=== PATIENT | female | born 1980 | race African-American/Black ===

== ENCOUNTER 2019-08-12 05:34 | Inpatient (IN) | payer MEDICAID ==
[~2019-08-12] VITALS: Ht 167.6 cm; Wt 84.4 kg
[2019-08-12] VITALS (8 sets, daily range): BP systolic 120–138; BP diastolic 75–86
--- NOTE | 2019-08-12 05:50 | Emergency Room Report ---
History of Present Illness General Chief Complaint: Abdominal Pain Source: Patient Present Illness HPI This is a 38-year-old female with no past medical history. She presents with complaint abdominal pain. Pain started around 10 PM, 8 hours prior to arrival. She said pain is diffusely. Pain is sharp and spastic in nature. Comes in waves. When it comes on is 10 out of 10. She has couple episode of nausea and vomiting. No fever chills. No diarrhea. Denies any trauma. Denies any other complaint. No hematuria. Never had this problem before. Allergies: Coded Allergies: No Known Allergies (Unverified , 08/12/19) Patient History Past Medical History: see triage record, old chart reviewed Past Surgical History: other Pertinent Family History: none Social History: Denies: smoking Now: No Immunizations: other Reviewed Nursing Documentation: PMH: Agreed; PSxH: Agreed Review of Systems Eye: Denies: eye pain, blurred vision ENT: Denies: ear pain, nose congestion, throat swelling Respiratory: Denies: cough, shortness of breath Cardiovascular: Denies: chest pain, palpitations Gastrointestinal: Reports: abdominal pain, nausea, vomiting; Denies: diarrhea Musculoskeletal: Denies: back pain, joint pain Skin: Denies: rash Neurological: Denies: headache, numbness Endocrine: Denies: increased thirst, increased urine Hematologic/Lymphatic: Denies: easy bruising All Other Systems: negative except mentioned in HPI Physical Exam Vital Signs Date Time Temp Pulse Resp B/P (MAP) Pulse Ox O2 Delivery O2 Flow Rate FiO2 08/12/19 05:43 98.1 81 20 138/86 (103) 100 Room Air Vitals normal Sp02 EP Interpretation: reviewed, normal General Appearance: well appearing, no apparent distress, alert Head: normocephalic, atraumatic Eyes: bilateral eye PERRL, bilateral eye EOMI ENT: hearing grossly normal, normal pharynx Neck: full range of motion, supple, no meningismus Respiratory: chest non-tender, lungs clear, normal breath sounds Cardiovascular #1: regular rate, rhythm, no murmur Gastrointestinal: normal bowel sounds, no mass, no organomegaly, no bruit, non- distended, tenderness - Right upper quadrant tenderness mostly Musculoskeletal: back normal, normal range of motion, gait/station normal Psychiatric: mood/affect normal Medical Decision Making Diagnostic Impression: Primary Impression: Abdominal pain Qualified Codes: R10.11 - Right upper quadrant pain Additional Impression: SBO (small bowel obstruction) ER Course Patient with abdominal pain with vomiting. Differential includes gallstone, gastritis, pancreatitis, obstruction, appendicitis telemetry. Labs and pain medication given. Patient will get CT scan to rule out acute abdomen. I will sign this patient out to Dr. Oliva for final disposition. CT/MRI/US Diagnostic Results CT/MRI/US Diagnostic Results : Imaging Test Ordered: CT abd and pelvis Impression SBO. read by radiologist. Last Vital Signs Date Time Temp Pulse Resp B/P (MAP) Pulse Ox O2 Delivery O2 Flow Rate FiO2 08/12/19 05:43 98.1 81 20 138/86 (103) 100 Room Air Status: improved Disposition: ADMITTED INPATIENT Condition: Serious Noe Kelley MD Aug 12, 2019 05:50
--- NOTE | 2019-08-12 05:50 | NUR ---
ED Nurse Note: Pt came in to ED from home c/o abdominal pain started last night at 2200. Reports vomiting x2, denies nausea/ diarrhea. Pt is crying in pain. Describes pain as sharp and comes in wave form. Afebrile. Not in any distress. Pt placed in campus monitor. Family members at bedside.
--- NOTE | 2019-08-12 05:53 | NUR ---
ED Nurse Note: ERMD at bedside.
--- NOTE | 2019-08-12 05:55 | NUR ---
ED Nurse Note: IV line established. Blood specimen collected and sent to lab.
[2019-08-12] MEDS ORDERED: Morphine Sulfate 4mg/ml Inj (IV USE ONLY) IVP ONE ×2 (06:00→06:15)
[2019-08-12] MEDS ORDERED: Morphine Sulfate 4mg/ml Inj (IV USE ONLY) ONE (06:08)
[2019-08-12 06:15] LABS: ANION GAP 13 mmol/L (5-15); BLOOD UREA NITROGEN 14 mg/dL (7-18); CALCIUM 9.2 MG/DL (8.5-10.1); CARBON DIOXIDE 23 MMOL/L (21-32); CHLORIDE 103 MMOL/L (98-107); CREATININE 0.8 MG/DL (0.55-1.30); POTASSIUM 3.9 MMOL/L (3.5-5.1); SODIUM 139 MMOL/L (136-145)
--- NOTE | 2019-08-12 06:16 | NUR ---
ED Nurse Note: Urine specimen collected and sent to lab.
[2019-08-12 06:18] LABS: EOSINOPHILS % (AUTO) 0.3 % (0.0-3.0); HEMATOCRIT 37.3 % (37.0-47.0); HEMOGLOBIN 12.2 G/DL (12.0-16.0); LYMPHOCYTES % (AUTO) 16.9 % (20.0-45.0); MEAN CORPUSCULAR VOLUME 80 FL (80-99); MONOCYTES % (AUTO) 3.1 % (1.0-10.0); NEUTROPHILS % (AUTO) 78.7 % (45.0-75.0); PLATELET COUNT 196 K/UL (150-450); RED BLOOD COUNT 4.66 M/UL (4.20-5.40); RED CELL DISTRIBUTION WIDTH 13.6 % (11.6-14.8); WHITE BLOOD COUNT 9.8 K/UL (4.8-10.8)
[2019-08-12 06:19] LABS: ALANINE AMINOTRANSFERASE 35 U/L (12-78); ALBUMIN 3.7 G/DL (3.4-5.0); ALBUMIN/GLOBULIN RATIO 0.7 (1.0-2.7); ALKALINE PHOSPHATASE 99 U/L (46-116); ASPARTATE AMINO TRANSFERASE 19 U/L (15-37); BILIRUBIN,TOTAL 0.3 MG/DL (0.2-1.0)
--- NOTE | 2019-08-12 06:19 | NUR ---
ED Nurse Note: Filipe Prakash (): [phone]
[2019-08-12] MEDS ORDERED: Ketorolac 30mg Inj IV ONE (06:30)
[2019-08-12] MEDS ORDERED: HYDROmorphone 1mg/ml Carpuject IVP ONE (06:30)
--- NOTE | 2019-08-12 06:36 | NUR ---
ED Nurse Note: Pt was taken for CT via wc, accompanied by a tech.
[2019-08-12 06:37] LABS: APPEARANCE,URINE CLEAR; BILIRUBIN, URINE NEGATIVE (NEGATIVE); COLOR,URINE PALE YELLOW; GLUCOSE, URINE (UA) NEGATIVE (NEGATIVE); KETONES,URINE NEGATIVE (NEGATIVE); LEUKOCYTE ESTERASE ,URINE NEGATIVE (NEGATIVE); NITRITE,URINE NEGATIVE (NEGATIVE); PH,URINE 8 (4.5-8.0); PROTEIN,URINE NEGATIVE (NEGATIVE); UROBILINOGEN,URINE NORMAL MG/DL (0.0-1.0)
--- NOTE | 2019-08-12 06:56 | NUR ---
ED Nurse Note: Pt came back from Ct. Not in any distress.
--- NOTE | 2019-08-12 06:59 | NUR ---
HAND-OFF: Report given to Valerio ESPITIA. Endorsed plan of care.
--- NOTE | 2019-08-12 07:00 | NUR ---
ED Nurse Note: Patient resting in bed, no s/s of acute distress.
--- NOTE | 2019-08-12 07:35 | Diagnostic Imaging Report ---
INDICATION: Abdominal pain TECHNIQUE: Continuous helical transaxial imaging of the abdomen and pelvis was obtained from the lung bases to the pubic symphysis. No intravenous contrast was administered. Coronal 2-D reformats were also obtained. Automatic Exposure Control was utilized. Total Dose length Product (DLP): 1579.[address] Dose Index Volume (CTDIvol): 28.1 mGy Comparison: none FINDINGS: Lungs: There is minimal left basal atelectasis.. Liver: Unremarkable Gallbladder/biliary system: No gallstones are identified. There is no evidence of intrahepatic or extrahepatic biliary ductal dilatation. Spleen: Unremarkable Pancreas: Unremarkable Kidneys/Bladder: No definite stone or hydronephrosis are identified. The urinary bladder is unremarkable.. Adrenal glands: Unremarkable Bowel: Mild dilated loops of small bowel demonstrated within the upper and mid abdomen. There are normal caliber loops of terminal ileum and distal small bowel suggesting transition and bowel obstruction. The point of obstruction is not readily elucidated on this examination but is probably in the lower abdomen. Current exam is obtained is limited due to the nonadministration of IV and oral contrast. There is no free air or free fluid. Aorta/IVC: Unremarkable Peritoneum: There is no free fluid. Bones: IMPRESSION: Suspicion of small bowel obstruction. Would include ileus in the differential diagnosis. The degree of bowel dilatation is mild. Transition point is not definitely seen. Note: Evaluation of solid organs is limited on non contrast imaging. [facility] has communicated the preliminary results to the Emergency Department. Their findings are largely concordant with this report. The CT scanner at [facility] is accredited by the [employer] and the scans are performed using dose optimization techniques as appropriate to a performed exam including Automatic Exposure control.
--- NOTE | 2019-08-12 08:46 | Emergency Room Report ---
Physical Exam Vital Signs Date Time Temp Pulse Resp B/P (MAP) Pulse Ox O2 Delivery O2 Flow Rate FiO2 08/12/19 05:43 98.1 81 20 138/86 (103) 100 Room Air Medical Decision Making Diagnostic Impression: Primary Impression: SBO (small bowel obstruction) ER Course Patient signed out by Dr. Kelley pending CT abdomen pelvis. Patient presented with 1 day of abdominal pain. Afebrile no elevated white blood cell count. Patient has history of laparoscopic fibroid removal as well as . CT demonstrates low-grade small bowel obstruction. Dr. Denson on-call for Dorie and will be admitting the patient. They requested Dr. Mcrae for surgical consultation. I have called him and left a message on his phone to call us back for consultation. Kept n.p.o. Laboratory Tests Test 08/12/19 05:55 08/12/19 06:15 White Blood Count 9.8 K/UL (4.8-10.8) Red Blood Count 4.66 M/UL (4.20-5.40) Hemoglobin 12.2 G/DL (12.0-16.0) Hematocrit 37.3 % (37.0-47.0) Mean Corpuscular Volume 80 FL (80-99) Mean Corpuscular Hemoglobin 26.2 PG (27.0-31.0) L Mean Corpuscular Hemoglobin Concent 32.7 G/DL (32.0-36.0) Red Cell Distribution Width 13.6 % (11.6-14.8) Platelet Count 196 K/UL (150-450) Mean Platelet Volume 8.7 FL (6.5-10.1) Neutrophils (%) (Auto) 78.7 % (45.0-75.0) H Lymphocytes (%) (Auto) 16.9 % (20.0-45.0) L Monocytes (%) (Auto) 3.1 % (1.0-10.0) Eosinophils (%) (Auto) 0.3 % (0.0-3.0) Basophils (%) (Auto) 1.0 % (0.0-2.0) Sodium Level 139 MMOL/L (136-145) Potassium Level 3.9 MMOL/L (3.5-5.1) Chloride Level 103 MMOL/L (98-107) Carbon Dioxide Level 23 MMOL/L (21-32) Anion Gap 13 mmol/L (5-15) Blood Urea Nitrogen 14 mg/dL (7-18) Creatinine 0.8 MG/DL (0.55-1.30) Estimate Glomerular Filtration Rate > 60 mL/min (>60) Glucose Level 122 MG/DL (74-106) H Calcium Level 9.2 MG/DL (8.5-10.1) Total Bilirubin 0.3 MG/DL (0.2-1.0) Aspartate Amino Transferase (AST) 19 U/L (15-37) Alanine Aminotransferase (ALT) 35 U/L (12-78) Alkaline Phosphatase 99 U/L (46-116) Total Protein 8.7 G/DL (6.4-8.2) H Albumin 3.7 G/DL (3.4-5.0) Globulin 5.0 g/dL Albumin/Globulin Ratio 0.7 (1.0-2.7) L Lipase 106 U/L (73-393) Human Chorionic Gonadotropin, Qual Negative (NEGATIVE) Urine Color Pale yellow Urine Appearance Clear Urine pH 8 (4.5-8.0) Urine Specific [place] 1.010 (1.005-1.035) Urine Protein Negative (NEGATIVE) Urine Glucose (UA) Negative (NEGATIVE) Urine Ketones Negative (NEGATIVE) Urine Blood Negative (NEGATIVE) Urine Nitrite Negative (NEGATIVE) Urine Bilirubin Negative (NEGATIVE) Urine Urobilinogen Normal MG/DL (0.0-1.0) Urine Leukocyte Esterase Negative (NEGATIVE) Urine HCG, Qualitative Negative (NEGATIVE) Last Vital Signs Date Time Temp Pulse Resp B/P (MAP) Pulse Ox O2 Delivery O2 Flow Rate FiO2 08/12/19 06:55 98.0 08/12/19 05:50 81 20 Room Air 08/12/19 05:50 138/86 100 Disposition: ADMITTED INPATIENT Condition: Serious Referrals: NOT CHOSEN NORMA/,REFERRING (PCP) Janet Oliva M.D. Aug 12, 2019 08:46
--- NOTE | 2019-08-12 09:15 | NUR ---
ED Nurse Note: Dr. Denson at bedside.
--- NOTE | 2019-08-12 09:57 | History and Physical ---
History of Present Illness General Date patient seen: Aug 12, 2019 Reason for Hospitalization: Abdominal Pain Present Illness HPI Patient is a 38-year-old female who presented to the ER with 1 day of abdominal pain and vomiting. Denies diarrhea, had a very small bowel movement the night before admission. Patient denies fever chills or any sick contacts. She is accompanied by her 7-year-old son at bedside. Patient says she smoking cigarettes never felt this in the past. She denies any aggravating or relieving factors. Her brother is a surgeon in [place] and he advised her to go to the ER. Past medical history: Hyperthyroidism on medications Past surgical history: C section, laparoscopic fibroid Social history: Denies toxic habits such as smoking cigarettes, drinking alcohol , or illicit drug use Family history: dad with DM meds: Atenolol 25, Methimazole 5 Allergies: Coded Allergies: No Known Allergies (Unverified , 08/12/19) Patient History Healthcare decision maker Resuscitation status Advanced Directive on File Review of Systems Constitutional: Denies: no symptoms, see HPI, chills, sweats, fever, malaise, weakness, other Eye: Denies: no symptoms, see HPI, eye pain, blurred vision, tearing, double vision, nose pain, nose congestion, acuity changes, discharge, other ENT: Denies: no symptoms, see HPI, ear pain, ear discharge, nose pain, nose congestion, throat pain, throat swelling, mouth pain, hearing loss, nasal discharge, other Respiratory: Denies: no symptoms, see HPI, cough, orthopnea, shortness of breath, stridor, wheezing, EUBANKS, sputum, other Cardiovascular: Denies: no symptoms, see HPI, chest pain, edema, palpitations, syncope, PND, other Gastrointestinal: Reports: abdominal pain, constipation, vomiting Genitourinary: Denies: no symptoms, see HPI, discharge, dysuria, frequency, hematuria, pain, retention, incontinence, urgency, vag bleed/dc, other Musculoskeletal: Denies: no symptoms, see HPI, back pain, gout, joint pain, joint swelling, muscle pain, muscle stiffness, other Skin: Denies: no symptoms, see HPI, rash, change in color, change in hair/nails , dryness, lesions, other Psychiatric: Denies: no symptoms, see HPI, prior hx, anxiety, depressed feelings, emotional problems, SI, HI, hallucinations, other Neurological: Denies: no symptoms, see HPI, headache, numbness, paresthesia, seizure, tingling, tremors, focal weakness, syncope, dizziness, other Endocrine: Denies: no symptoms, see HPI, excessive sweating, flushing, intolerance to temperature, increased thirst, increased urine, unexplained weight loss, other Hematologic/Lymphatic: Denies: no symptoms, see HPI, anemia, blood clots, easy bleeding, easy bruising, swollen glands, diathesis, other Physical Exam General Appearance: mild distress Lines, tubes and drains: peripheral HEENT: normocephalic, atraumatic, anicteric, PERRL, EOMI Neck: non-tender, supple Respiratory/Chest: chest wall non-tender, lungs clear, normal breath sounds, no respiratory distress Cardiovascular/Chest: normal peripheral pulses, normal rate, regular rhythm, no gallop/murmur, no JVD Abdomen: normal bowel sounds, soft, no organomegaly, no mass, tender - RUQ Extremities: normal range of motion, non-tender, normal inspection, no calf tenderness, normal capillary refill Skin Exam: normal pigmentation, warm/dry Neurologic: warehouse packer II-XII grossly normal, no motor/sensory deficits, abnormal gait , alert, oriented x 3, responsive Musculoskeletal: normal muscle bulk Last 24 Hour Vital Signs Date Time Temp Pulse Resp B/P (MAP) Pulse Ox O2 Delivery O2 Flow Rate FiO2 08/12/19 06:55 98.0 08/12/19 06:55 98.0 08/12/19 06:50 98.0 08/12/19 06:21 98.0 08/12/19 05:50 81 20 Room Air 08/12/19 05:50 98.1 81 20 138/86 100 Room Air 08/12/19 05:43 98.1 81 20 138/86 (103) 100 Room Air Intake and Output 08/11/19 08/12/19 19:00 07:00 Intake Total 1000 ml Balance 1000 ml Intake IV Total 1000 ml Laboratory Tests Test 08/12/19 05:55 08/12/19 06:15 White Blood Count 9.8 K/UL (4.8-10.8) Red Blood Count 4.66 M/UL (4.20-5.40) Hemoglobin 12.2 G/DL (12.0-16.0) Hematocrit 37.3 % (37.0-47.0) Mean Corpuscular Volume 80 FL (80-99) Mean Corpuscular Hemoglobin 26.2 PG (27.0-31.0) L Mean Corpuscular Hemoglobin Concent 32.7 G/DL (32.0-36.0) Red Cell Distribution Width 13.6 % (11.6-14.8) Platelet Count 196 K/UL (150-450) Mean Platelet Volume 8.7 FL (6.5-10.1) Neutrophils (%) (Auto) 78.7 % (45.0-75.0) H Lymphocytes (%) (Auto) 16.9 % (20.0-45.0) L Monocytes (%) (Auto) 3.1 % (1.0-10.0) Eosinophils (%) (Auto) 0.3 % (0.0-3.0) Basophils (%) (Auto) 1.0 % (0.0-2.0) Sodium Level 139 MMOL/L (136-145) Potassium Level 3.9 MMOL/L (3.5-5.1) Chloride Level 103 MMOL/L (98-107) Carbon Dioxide Level 23 MMOL/L (21-32) Anion Gap 13 mmol/L (5-15) Blood Urea Nitrogen 14 mg/dL (7-18) Creatinine 0.8 MG/DL (0.55-1.30) Estimat Glomerular Filtration Rate > 60 mL/min (>60) Glucose Level 122 MG/DL (74-106) H Calcium Level 9.2 MG/DL (8.5-10.1) Total Bilirubin 0.3 MG/DL (0.2-1.0) Aspartate Amino Transf (AST/SGOT) 19 U/L (15-37) Alanine Aminotransferase (ALT/SGPT) 35 U/L (12-78) Alkaline Phosphatase 99 U/L (46-116) Total Protein 8.7 G/DL (6.4-8.2) H Albumin 3.7 G/DL (3.4-5.0) Globulin 5.0 g/dL Albumin/Globulin Ratio 0.7 (1.0-2.7) L Lipase 106 U/L (73-393) Human Chorionic Gonadotropin, Qual Negative (NEGATIVE) Urine Color Pale yellow Urine Appearance Clear Urine pH 8 (4.5-8.0) Urine Specific [place] 1.010 (1.005-1.035) Urine Protein Negative (NEGATIVE) Urine Glucose (UA) Negative (NEGATIVE) Urine Ketones Negative (NEGATIVE) Urine Blood Negative (NEGATIVE) Urine Nitrite Negative (NEGATIVE) Urine Bilirubin Negative (NEGATIVE) Urine Urobilinogen Normal MG/DL (0.0-1.0) Urine Leukocyte Esterase Negative (NEGATIVE) Urine HCG, Qualitative Negative (NEGATIVE) Height (Feet): 5 Height (Inches): 6.00 Weight (Pounds): 185 Medications Current Medications Medications (Trade) Dose Ordered Sig/Donte Route PRN Reason Start Time Stop Time Status Last Admin Dose Admin Sodium Chloride 1,000 ml @ 999 mls/hr Q1H1M ONCE IV 08/12/19 09:00 08/12/19 10:00 08/12/19 09:[address] abdomen pelvis: Suspicion of small bowel obstruction. Would include ileus in the differential diagnosis. The degree of bowel dilatation is mild. Transition point is not definitely seen. Assessment/Plan Problem List: (1) SBO (small bowel obstruction) ICD Codes: K56.609 - Unspecified intestinal obstruction, unspecified as to partial versus complete obstruction SNOMED: 676676205 (2) Hyperthyroidism ICD Codes: E05.90 - Thyrotoxicosis, unspecified without thyrotoxic crisis or storm SNOMED: 60066785 (3) Obesity (BMI 30.0-34.9) ICD Codes: E66.9 - Obesity, unspecified SNOMED: [id number] Status: stable Assessment/Plan: 38-year-old female with hypothyroidism and previous abdominal surgeries presented with nausea vomiting and abdominal pain. CT abdomen pelvis consistent with small bowel obstruction. #SBO NPO IVF ?NGT Gen surg consult Dr. Mcrae #Hyperthyroidism continue home atneolol and methimazole check TFTs #Obesity Counseled on lifestyle modification and weight loss #VTE prophylaxis: Lovenox 40 mg subcu daily #GI prophylaxis: Not indicated CODE STATUS: Full code I spent 72 minutes on this encounter. Greater than 50% spent in counseling and care coordination. Plan of care discussed with ED physician and patient. Time of note may not reflect time of encounter. Alex Denson M.D. Aug 12, 2019 09:57
[2019-08-12] MEDS ORDERED: Albuterol/Ipratropium 3ml neb HHN PRN (10:00)
[2019-08-12] MEDS: HYDROmorphone 1mg/ml Carpuject IVP PRN ×3 (10:16→22:40)
--- NOTE | 2019-08-12 13:29 | NUR ---
ED Nurse Note: Report given to Alissa ESPITIA
--- NOTE | 2019-08-12 13:40 | NUR ---
nurse notes received patient from ED via gurney , patient awake, alert, oriented x4, no sign of distress, ambulatory skin intact, , admission routine care rendered, oriented to the unit, kept clean dry and comfortable . yeimi sánchez
[2019-08-12] MEDS: Enoxaparin 40mg Inj SUBQ SCH (14:37)
--- NOTE | 2019-08-12 16:36 | Consultation ---
History of Present Illness General Date patient seen: Aug 12, 2019 Reason for Hospitalization: Abdominal Pain Present Illness HPI This is a 38-year-old female with no past medical history who presents to [facility] with complaint of generalized cramping abdominal pain. Pain started around 10 PM day of admission, 8 hours prior to arrival. She said pain is diffusely. Pain is sharp and spastic in nature. Comes in waves. When it comes on is 10 out of 10. She has couple episode of nausea and vomiting no bloody. No fever chills. No diarrhea. Denies any trauma. Denies any other complaint. No hematuria. Never had this problem before. hx of c section and prior lap fibroid surgery. CT with possible sbo. surgery called to evaluate Allergies: Coded Allergies: No Known Allergies (Unverified , 08/12/19) Patient History History Provided By: Patient Healthcare decision maker Resuscitation status Advanced Directive on File Past Medical/Surgical History Past Medical/Surgical History: (1) Abdominal pain (2) SBO (small bowel obstruction) Review of Systems Review of Symptoms General ROS: no weight loss or fever Psychological ROS: no depression or mood changes, no memory loss Ophthalmic ROS: no visual changes or eye irritation ENT ROS: no nasal congestion, hearing loss, dizziness Allergy and Immunology ROS: no allergic symptoms or urticaria Hematological and Lymphatic ROS: no swollen glands, unusual bleeding or bruising Endocrine ROS: no polyuria, polydipsia, weight changes, temperature intolerance Respiratory ROS: no cough, shortness of breath, or wheezing Cardiovascular ROS: no chest pain or dyspnea on exertion Gastrointestinal ROS: abdominal pain, bright red blood in stool. Musculoskeletal ROS: no myalgias or arthralgias Neurological ROS: no TIA or stroke symptoms Dermatological ROS: no new or changing skin lesions, rashes or pruritis Physical Exam Physical Exam General appearance: alert, cooperative, no distress, appears stated age Head: Normocephalic, without obvious abnormality, atraumatic Eyes: conjunctivae/corneas clear. PERRL, EOM's intact. Fundi benign Throat: Lips, mucosa, and tongue normal. Teeth and gums normal Neck: supple, symmetrical, trachea midline, no adenopathy, thyroid: not enlarged, symmetric, no tenderness/mass/nodules, no carotid bruit and no JVD Lungs: clear to auscultation bilaterally Heart: regular rate and rhythm, S1, S2 normal, no murmur, click, rub or gallop Abdomen: soft, non-tender. Bowel sounds normal. No masses, no organomegaly Extremities: extremities normal, atraumatic, no cyanosis or edema Pulses: 2+ and symmetric Skin: Skin color, texture, turgor normal. No rashes or lesions Neurologic: Grossly normal Last 24 Hour Vital Signs Date Time Temp Pulse Resp B/P (MAP) Pulse Ox O2 Delivery O2 Flow Rate FiO2 08/12/19 16:20 98.3 77 19 124/83 (97) 100 08/12/19 14:00 97.3 71 17 120/75 (90) 100 08/12/19 14:00 Room Air 08/12/19 13:07 98.1 81 17 127/79 100 Room Air 08/12/19 12:05 98.1 84 20 130/81 100 Room Air 08/12/19 10:46 98.0 08/12/19 09:15 98.1 79 19 129/79 100 Room Air 08/12/19 07:10 98.1 80 20 138/86 100 Room Air 08/12/19 06:55 98.0 08/12/19 06:55 98.0 08/12/19 06:50 98.0 08/12/19 06:21 98.0 08/12/19 05:50 81 20 Room Air 08/12/19 05:50 98.1 81 20 138/86 100 Room Air 08/12/19 05:43 98.1 81 20 138/86 (103) 100 Room Air Intake and Output 08/11/19 08/12/19 19:00 07:00 Intake Total 1000 ml Balance 1000 ml Intake IV Total 1000 ml Laboratory Tests Test 08/12/19 05:55 08/12/19 06:15 White Blood Count 9.8 K/UL (4.8-10.8) Red Blood Count 4.66 M/UL (4.20-5.40) Hemoglobin 12.2 G/DL (12.0-16.0) Hematocrit 37.3 % (37.0-47.0) Mean Corpuscular Volume 80 FL (80-99) Mean Corpuscular Hemoglobin 26.2 PG (27.0-31.0) L Mean Corpuscular Hemoglobin Concent 32.7 G/DL (32.0-36.0) Red Cell Distribution Width 13.6 % (11.6-14.8) Platelet Count 196 K/UL (150-450) Mean Platelet Volume 8.7 FL (6.5-10.1) Neutrophils (%) (Auto) 78.7 % (45.0-75.0) H Lymphocytes (%) (Auto) 16.9 % (20.0-45.0) L Monocytes (%) (Auto) 3.1 % (1.0-10.0) Eosinophils (%) (Auto) 0.3 % (0.0-3.0) Basophils (%) (Auto) 1.0 % (0.0-2.0) Sodium Level 139 MMOL/L (136-145) Potassium Level 3.9 MMOL/L (3.5-5.1) Chloride Level 103 MMOL/L (98-107) Carbon Dioxide Level 23 MMOL/L (21-32) Anion Gap 13 mmol/L (5-15) Blood Urea Nitrogen 14 mg/dL (7-18) Creatinine 0.8 MG/DL (0.55-1.30) Estimat Glomerular Filtration Rate > 60 mL/min (>60) Glucose Level 122 MG/DL (74-106) H Calcium Level 9.2 MG/DL (8.5-10.1) Total Bilirubin 0.3 MG/DL (0.2-1.0) Aspartate Amino Transf (AST/SGOT) 19 U/L (15-37) Alanine Aminotransferase (ALT/SGPT) 35 U/L (12-78) Alkaline Phosphatase 99 U/L (46-116) Total Protein 8.7 G/DL (6.4-8.2) H Albumin 3.7 G/DL (3.4-5.0) Globulin 5.0 g/dL Albumin/Globulin Ratio 0.7 (1.0-2.7) L Lipase 106 U/L (73-393) Human Chorionic Gonadotropin, Qual Negative (NEGATIVE) Urine Color Pale yellow Urine Appearance Clear Urine pH 8 (4.5-8.0) Urine Specific Breaks 1.010 (1.005-1.035) Urine Protein Negative (NEGATIVE) Urine Glucose (UA) Negative (NEGATIVE) Urine Ketones Negative (NEGATIVE) Urine Blood Negative (NEGATIVE) Urine Nitrite Negative (NEGATIVE) Urine Bilirubin Negative (NEGATIVE) Urine Urobilinogen Normal MG/DL (0.0-1.0) Urine Leukocyte Esterase Negative (NEGATIVE) Urine HCG, Qualitative Negative (NEGATIVE) Height (Feet): 5 Height (Inches): 6.00 Weight (Pounds): 186 Medications Current Medications Medications (Trade) Dose Ordered Sig/Donte Route PRN Reason Start Time Stop Time Status Last Admin Dose Admin Acetaminophen (Tylenol) 650 mg Q4H PRN ORAL Mild Pain (Pain Scale 1-3) 08/12/19 10:00 09/11/19 09:59 Acetaminophen (Tylenol) 650 mg Q4H PRN ORAL fever 08/12/19 10:00 09/11/19 09:59 Albuterol/ Ipratropium (Albuterol/ Ipratropium) 3 ml Q4H PRN HHN Shortness of Breath 08/12/19 10:00 08/17/19 09:59 Atenolol (Tenormin) 25 mg DAILY ORAL 08/13/19 09:00 09/12/19 08:59 Dextrose (Dextrose 50%) 25 ml Q30M PRN IV Hypoglycemia 08/12/19 10:00 09/11/19 09:59 Dextrose (Dextrose 50%) 50 ml Q30M PRN IV Hypoglycemia 08/12/19 10:00 09/11/19 09:59 Enoxaparin Sodium (Lovenox) 40 mg Q24H SUBQ 08/12/19 15:00 09/11/19 14:59 08/12/19 14:37 Hydromorphone HCl (Dilaudid) 1 mg Q4H PRN IVP Moderate Pain (Pain Scale 4-6) 08/12/19 10:00 08/19/19 09:59 08/12/19 10:16 Hydromorphone HCl (Dilaudid) 2 mg Q4H PRN IVP Severe Pain (Pain Scale 7-10) 08/12/19 10:00 08/19/19 09:59 Methimazole (Tapazole) 5 mg THREE TIMES A DAY ORAL 08/12/19 13:00 09/11/19 12:59 08/12/19 14:30 Ondansetron HCl (Zofran) 4 mg Q6H PRN IVP Nausea & Vomiting 08/12/19 10:00 09/11/19 09:59 Sodium Chloride 1,000 ml @ 125 mls/hr Q8H IVLG 08/12/19 11:00 09/11/19 10:59 08/12/19 14:35 Assessment/Plan Problem List: (1) Abdominal pain Assessment & Plan: 38F with abd pain, n/v, Ct with possible sbo. labs okay exam now benign improving had flatus Upper GI small bowel series tomorrow if okay start diet and d/c planning npo for now iv fluids will follow with recs thank you ICD Codes: R10.9 - Unspecified abdominal pain SNOMED: 49098477 Qualifiers: Qualified Codes: R10.11 - Right upper quadrant pain (2) SBO (small bowel obstruction) Assessment & Plan: Lungs: There is minimal left basal atelectasis.. Liver: Unremarkable Gallbladder/biliary system: No gallstones are identified. There is no evidence of intrahepatic or extrahepatic biliary ductal dilatation. Spleen: Unremarkable Pancreas: Unremarkable Kidneys/Bladder: No definite stone or hydronephrosis are identified. The urinary bladder is unremarkable.. Adrenal glands: Unremarkable Bowel: Mild dilated loops of small bowel demonstrated within the upper and mid abdomen. There are normal caliber loops of terminal ileum and distal small bowel suggesting transition and bowel obstruction. The point of obstruction is not readily elucidated on this examination but is probably in the lower abdomen. Current exam is obtained is limited due to the nonadministration of IV and oral contrast. There is no free air or free fluid. Aorta/IVC: Unremarkable Peritoneum: There is no free fluid. Bones: IMPRESSION: Suspicion of small bowel obstruction. Would include ileus in the differential diagnosis. The degree of bowel dilatation is mild. Transition point is not definitely seen. Note: Evaluation of solid organs is limited on non contrast imaging. ICD Codes: K56.609 - Unspecified intestinal obstruction, unspecified as to partial versus complete obstruction SNOMED: 105874919 Jose Mcrae Aug 12, 2019 16:36
--- NOTE | 2019-08-12 19:32 | NUR ---
NURSE NOTES: Received patient asleep in bed, easily arousable, no c/o pain at this time, no s/s of acute distress. Bed low and locked, patient wearing non slip socks. IV access patent running IVF maintenance at 125 ml/hr. 2 siderails up.
--- NOTE | 2019-08-12 19:33 | NUR ---
HAND-OFF: Report given to NUPUR Hernandez RN
[2019-08-13] VITALS: BP 118/71
[2019-08-13] MEDS: HYDROmorphone 1mg/ml Carpuject IVP PRN ×2 (02:44→10:55)
[2019-08-13 04:00] VITALS: BP 123/65
[2019-08-13 04:36] LABS: BASOPHILS % (AUTO) 0.6 % (0.0-2.0); HEMATOCRIT 32.6 % (37.0-47.0); HEMOGLOBIN 10.7 G/DL (12.0-16.0); LYMPHOCYTES % (AUTO) 40.2 % (20.0-45.0); MEAN CORPUSCULAR VOLUME 80 FL (80-99); MONOCYTES % (AUTO) 6.4 % (1.0-10.0); NEUTROPHILS % (AUTO) 51.7 % (45.0-75.0); PLATELET COUNT 169 K/UL (150-450); RED BLOOD COUNT 4.08 M/UL (4.20-5.40); WHITE BLOOD COUNT 6.9 K/UL (4.8-10.8)
[2019-08-13 04:47] LABS: ANION GAP 5 mmol/L (5-15); BLOOD UREA NITROGEN 7 mg/dL (7-18); CARBON DIOXIDE 27 MMOL/L (21-32); CHLORIDE 107 MMOL/L (98-107); CREATININE 0.6 MG/DL (0.55-1.30); POTASSIUM 3.3 MMOL/L (3.5-5.1); SODIUM 139 MMOL/L (136-145)
[2019-08-13 04:59] LABS: ALANINE AMINOTRANSFERASE 29 U/L (12-78); ALBUMIN 2.7 G/DL (3.4-5.0); ALBUMIN/GLOBULIN RATIO 0.7 (1.0-2.7); ALKALINE PHOSPHATASE 82 U/L (46-116); ASPARTATE AMINO TRANSFERASE 15 U/L (15-37); BILIRUBIN,TOTAL 0.5 MG/DL (0.2-1.0)
--- NOTE | 2019-08-13 07:15 | NUR ---
NURSE NOTES: Received patient in bed, patient awake, alert, oriented x4, denies pain at this time, sign of respiratory distress.IVF patent and infusing well, on fall precaution, Bed low and locked, call light w/n reach, will continue to monitor yeimi sánchez
[2019-08-13 08:10] VITALS: BP 124/80
[2019-08-13] MEDS ORDERED: Atenolol 25mg tab ORAL SCH (09:00)
[2019-08-13 12:00] VITALS: BP 114/71
--- NOTE | 2019-08-13 13:12 | General Progress Note ---
Assessment/Plan Problem List: (1) SBO (small bowel obstruction) ICD Codes: K56.609 - Unspecified intestinal obstruction, unspecified as to partial versus complete obstruction SNOMED: 757113500 (2) Hyperthyroidism ICD Codes: E05.90 - Thyrotoxicosis, unspecified without thyrotoxic crisis or storm SNOMED: 14918348 (3) Obesity (BMI 30.0-34.9) ICD Codes: E66.9 - Obesity, unspecified SNOMED: 020325030917938 Status: stable Assessment/Plan: 38-year-old female with hypothyroidism and previous abdominal surgeries presented with nausea vomiting and abdominal pain. CT abdomen pelvis consistent with small bowel obstruction. #SBO NPO IVF ?NGT s/p upper GI small bowel series. follow up results Gen surg consult Dr. Mcrae, wing appreciated #Hyperthyroidism continue home atneolol and methimazole check TFTs #Obesity Counseled on lifestyle modification and weight loss #VTE prophylaxis: Lovenox 40 mg subcu daily #GI prophylaxis: Not indicated CODE STATUS: Full code I spent 42 minutes on this encounter. Greater than 50% spent in counseling and care coordination. Plan of care discussed with ED physician and patient. Time of note may not reflect time of encounter. Subjective Date patient seen: Aug 13, 2019 Constitutional: Denies: no symptoms, chills, diaphoresis, fever, malaise, weakness, other HEENT: Denies: no symptoms, eye pain, blurred vision, tearing, double vision, ear pain, ear discharge, nose pain, nose congestion, throat pain, throat swelling, mouth pain, mouth swelling, other Cardiovascular: Denies: no symptoms, chest pain, edema, irregular heart rate, lightheadedness, palpitations, syncope, other Respiratory: Denies: no symptoms, cough, orthopnea, shortness of breath, SOB with excertion, SOB at rest, sputum, stridor, wheezing, other Gastrointestinal/Abdominal: Reports: abdominal pain, constipated, nausea Genitourinary: Denies: no symptoms, burning, discharge, frequency, flank pain, hematuria, incontinence, pain, urgency, other Neurologic/Psychiatric: Denies: no symptoms, anxiety, depressed, emotional problems, headache, numbness, paresthesia, pre-existing deficit, seizure, tingling, tremors, weakness, other Endocrine: Denies: no symptoms, excessive sweating, flushing, intolerance to cold, intolerance to heat, increased hunger, increased thirst, increased urine, unexplained weight gain, unexplained weight loss, other Hematologic/Lymphatic: Denies: no symptoms, anemia, easy bleeding, easy bruising, other Allergies: Coded Allergies: No Known Allergies (Unverified , 08/12/19) Subjective has RUQ abdominal pain. went for small bowel series. at bedside Objective Last 24 Hour Vital Signs Date Time Temp Pulse Resp B/P (MAP) Pulse Ox O2 Delivery O2 Flow Rate FiO2 08/13/19 12:00 97.8 66 21 114/71 (85) 96 08/13/19 08:45 Room Air 08/13/19 08:24 68 123/65 08/13/19 08:10 98.6 75 20 124/80 (95) 99 08/13/19 04:00 97.1 68 17 123/65 (84) 99 08/13/19 03:14 97.3 08/13/19 00:00 97.3 70 18 118/71 (87) 100 08/12/19 23:56 Room Air 08/12/19 20:00 97.7 72 20 121/76 (91) 100 08/12/19 16:20 98.3 77 19 124/83 (97) 100 08/12/19 14:00 97.3 71 17 120/75 (90) 100 08/12/19 14:00 Room Air Intake and Output 08/12/19 08/13/19 19:00 07:00 Intake Total 525 ml 1125 ml Balance 525 ml 1125 ml Intake Oral 25 ml IV Total 500 ml 1125 ml # Voids 1 2 Laboratory Tests 08/13/19 04:10: White Blood Count 6.9, Red Blood Count 4.08L, Hemoglobin 10.7L, Hematocrit 32.6L , Mean Corpuscular Volume 80, Mean Corpuscular Hemoglobin 26.1L, Mean Corpuscular Hemoglobin Concent 32.7, Red Cell Distribution Width 14.0, Platelet Count 169, Mean Platelet Volume 8.8, Neutrophils (%) (Auto) 51.7, Lymphocytes (% ) (Auto) 40.2, Monocytes (%) (Auto) 6.4, Eosinophils (%) (Auto) 1.0, Basophils ( %) (Auto) 0.6, Sodium Level 139, Potassium Level 3.3L, Chloride Level 107, Carbon Dioxide Level 27, Anion Gap 5, Blood Urea Nitrogen 7, Creatinine 0.6, Estimat Glomerular Filtration Rate > 60, Glucose Level 90, Calcium Level 8.0L, Total Bilirubin 0.5, Aspartate Amino Transf (AST/SGOT) 15, Alanine Aminotransferase (ALT/SGPT) 29, Alkaline Phosphatase 82, Total Protein 6.8, Albumin 2.7L, Globulin 4.1, Albumin/Globulin Ratio 0.7L, Thyroid Stimulating Hormone (TSH) < 0.010L, Free Thyroxine 1.00 Height (Feet): 5 Height (Inches): 6.00 Weight (Pounds): 186 Objective General Appearance: mild distress Lines, tubes and drains: peripheral HEENT: normocephalic, atraumatic, anicteric, PERRL, EOMI Neck: non-tender, supple Respiratory/Chest: chest wall non-tender, lungs clear, normal breath sounds, no respiratory distress Cardiovascular/Chest: normal peripheral pulses, normal rate, regular rhythm, no gallop/murmur, no JVD Abdomen: normal bowel sounds, soft, no organomegaly, no mass, tender - RUQ Extremities: normal range of motion, non-tender, normal inspection, no calf tenderness, normal capillary refill Skin Exam: normal pigmentation, warm/dry 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 Aug 13, 2019 13:12
--- NOTE | 2019-08-13 14:13 | Surgery Progress Note ---
Surgery Progress Note Subjective Symptoms: improved, pain absent, passing flatus, BM Objective Last 24 Hour Vital Signs Date Time Temp Pulse Resp B/P (MAP) Pulse Ox O2 Delivery O2 Flow Rate FiO2 08/13/19 12:00 97.8 66 21 114/71 (85) 96 08/13/19 08:45 Room Air 08/13/19 08:24 68 123/65 08/13/19 08:10 98.6 75 20 124/80 (95) 99 08/13/19 04:00 97.1 68 17 123/65 (84) 99 08/13/19 03:14 97.3 08/13/19 00:00 97.3 70 18 118/71 (87) 100 08/12/19 23:56 Room Air 08/12/19 20:00 97.7 72 20 121/76 (91) 100 08/12/19 16:20 98.3 77 19 124/83 (97) 100 I&O Intake and Output 08/12/19 08/13/19 19:00 07:00 Intake Total 525 ml 1125 ml Balance 525 ml 1125 ml Intake Oral 25 ml IV Total 500 ml 1125 ml # Voids 1 2 Cardiovascular: RSR Respiratory: clear Abdomen: soft, flat, non-tender, present bowel sounds, non-distended Extremities: no edema, no tenderness, no cyanosis Laboratory Tests Test 08/13/19 04:10 White Blood Count 6.9 K/UL (4.8-10.8) Red Blood Count 4.08 M/UL (4.20-5.40) L Hemoglobin 10.7 G/DL (12.0-16.0) L Hematocrit 32.6 % (37.0-47.0) L Mean Corpuscular Volume 80 FL (80-99) Mean Corpuscular Hemoglobin 26.1 PG (27.0-31.0) L Mean Corpuscular Hemoglobin Concent 32.7 G/DL (32.0-36.0) Red Cell Distribution Width 14.0 % (11.6-14.8) Platelet Count 169 K/UL (150-450) Mean Platelet Volume 8.8 FL (6.5-10.1) Neutrophils (%) (Auto) 51.7 % (45.0-75.0) Lymphocytes (%) (Auto) 40.2 % (20.0-45.0) Monocytes (%) (Auto) 6.4 % (1.0-10.0) Eosinophils (%) (Auto) 1.0 % (0.0-3.0) Basophils (%) (Auto) 0.6 % (0.0-2.0) Sodium Level 139 MMOL/L (136-145) Potassium Level 3.3 MMOL/L (3.5-5.1) L Chloride Level 107 MMOL/L (98-107) Carbon Dioxide Level 27 MMOL/L (21-32) Anion Gap 5 mmol/L (5-15) Blood Urea Nitrogen 7 mg/dL (7-18) Creatinine 0.6 MG/DL (0.55-1.30) Estimat Glomerular Filtration Rate > 60 mL/min (>60) Glucose Level 90 MG/DL (74-106) Calcium Level 8.0 MG/DL (8.5-10.1) L Total Bilirubin 0.5 MG/DL (0.2-1.0) Aspartate Amino Transf (AST/SGOT) 15 U/L (15-37) Alanine Aminotransferase (ALT/SGPT) 29 U/L (12-78) Alkaline Phosphatase 82 U/L (46-116) Total Protein 6.8 G/DL (6.4-8.2) Albumin 2.7 G/DL (3.4-5.0) L Globulin 4.1 g/dL Albumin/Globulin Ratio 0.7 (1.0-2.7) L Thyroid Stimulating Hormone (TSH) < 0.010 uiU/mL (0.358-3.740) Free Thyroxine 1.00 NG/DL (0.76-1.46) Plan Problems: (1) Abdominal pain Assessment & Plan: 38F with abd pain, n/v, Ct with possible sbo. labs okay exam now benign improving had flatus Upper GI small bowel series normal okay start diet d/c planning will follow with recs thank you (2) SBO (small bowel obstruction) Assessment & Plan: Lungs: There is minimal left basal atelectasis.. Liver: Unremarkable Gallbladder/biliary system: No gallstones are identified. There is no evidence of intrahepatic or extrahepatic biliary ductal dilatation. Spleen: Unremarkable Pancreas: Unremarkable Kidneys/Bladder: No definite stone or hydronephrosis are identified. The urinary bladder is unremarkable.. Adrenal glands: Unremarkable Bowel: Mild dilated loops of small bowel demonstrated within the upper and mid abdomen. There are normal caliber loops of terminal ileum and distal small bowel suggesting transition and bowel obstruction. The point of obstruction is not readily elucidated on this examination but is probably in the lower abdomen. Current exam is obtained is limited due to the nonadministration of IV and oral contrast. There is no free air or free fluid. Aorta/IVC: Unremarkable Peritoneum: There is no free fluid. Bones: IMPRESSION: Suspicion of small bowel obstruction. Would include ileus in the differential diagnosis. The degree of bowel dilatation is mild. Transition point is not definitely seen. Note: Evaluation of solid organs is limited on non contrast imaging. Jose Mcrae Aug 13, 2019 14:13
[2019-08-13] MEDS: Enoxaparin 40mg Inj SUBQ SCH (14:32)
--- NOTE | 2019-08-13 14:51 | NUR ---
CASE MANAGEMENT:INITIAL REVIEW 38 YR OLD FEMALE FROM HOME CC;ABDOMINAL PAIN SI;SMALL BOWEL OBSTRUCTION 98.1 81 20 138/86 100% ON RA ABD/PELVIS CT - Suspicion of small bowel obstruction. Would include ileus in the differential diagnosis. The degree of bowel dilatation is mild. IS;ZOFRAN IV X1 MORPHINE IV X1 DILAUDID IV X1 IVF NS BOLUS X1 TORADOL IV X1 ADMITTED TO MED SURG MED SURG STATUS DCP;FROM HOME
[2019-08-13 15:56] VITALS: BP 105/66
--- NOTE | 2019-08-13 19:08 | NUR ---
HAND-OFF: Report given to Ms Jocelin RN, resting comfortably in bed, needs met and anticipated yeimi sánchez.
--- NOTE | 2019-08-13 19:52 | NUR ---
NURSE NOTES: Received patient asleep in bed, easily arousable, no c/o pain at this time, no s/s of acute distress. Bed low and locked, patient wearing non slip socks. IV access patent, on saline lock, dressing dry and intact. 2 siderails up.
[2019-08-13 20:00] VITALS: BP 137/80
--- NOTE | 2019-08-13 21:44 | NUR ---
NURSE NOTES: Patient wants to leave AMA, left message for Dr Le, awaiting call back.
--- NOTE | 2019-08-13 21:59 | NUR ---
AMA: SEE AMA FORM. Dr Le aware. IV access discontinued, no s/s of infection, IV catheter intact. Patient left with in private vehicle.
--- NOTE | 2019-08-14 09:40 | Diagnostic Imaging Report ---
Indication: Abdominal pain, suspected small bowel obstruction on prior CT scan Technique: Patient ingested water-soluble contrast. Serial overhead films obtained. A total of 6 images were obtained. No fluoroscopy utilized. Comparison: CT scan dated 08/12/2019 Findings: [employer] Outreach Specialist image demonstrates normal bowel gas pattern. No masses or unusual calcifications. Previously demonstrated small bowel gaseous distention is not evident After contrast ingestion, the stomach appears normal. Small bowel loops are normal in caliber, demonstrates normal mucosal pattern. There is brisk antegrade transit of contrast, with contrast seen in the colon at one hour. Impression: Negative. No evidence of small bowel obstruction or other acute or significant abnormality Findings previously discussed by phone with Dr. Mcrae
--- NOTE | 2019-08-14 12:02 | Discharge Summary ---
Discharge Summary Hospital Course Date of Admission Aug 12, 2019 at 13:16 Date of Discharge Aug 13, 2019 at 21:58 Admitting Diagnosis Small Bowel Obstruction REUBEN Prakash is a 38 year old female who was admitted on Aug 12, 2019 at 13:16 for Small Bowel Obstruction Consultations General surgery Hospital Course 38-year-old female with hypothyroidism and previous abdominal surgeries presented with nausea vomiting and abdominal pain. CT abdomen pelvis consistent with small bowel obstruction. #SBO NPO IVF ?NGT s/p upper GI small bowel series. follow up results Gen surg consult Dr. Mcrae, recs appreciated #Hyperthyroidism continue home atneolol and methimazole check TFTs #Obesity Counseled on lifestyle modification and weight loss #VTE prophylaxis: Lovenox 40 mg subcu daily #GI prophylaxis: Not indicated CODE STATUS: Full code PATIENT SIGNED OUT AMA ON 08/13 Time of note may not reflect time of encounter. Discharge Condition Upon Discharge: other Discharge Vital Signs Last Vital Signs Date Time Temp Pulse Resp B/P (MAP) Pulse Ox O2 Delivery O2 Flow Rate FiO2 08/13/19 21:00 Room Air 08/13/19 20:00 98.2 78 21 137/80 (99) 99 Discharge Disposition Patient was discharged to AMA Discharge Diagnoses: (1) SBO (small bowel obstruction) (2) Hyperthyroidism (3) Obesity (BMI 30.0-34.9) Alex Denson M.D. Aug 14, 2019 12:02
== END 2019-08-13 21:58 | disposition left against medical advice (07) | DRG 247 ==
LOC: EMR 05:49 → EDBEDREQ 09:31 → 4E 13:16
DX: K56.609 Unspecified intestinal obstruction, unspecified as to partial versus complete obstruction (principal); E66.9 Obesity, unspecified; Z68.30 Body mass index [BMI] 30.0-30.9, adult; E05.90 Thyrotoxicosis, unspecified without thyrotoxic crisis or storm
CPT/HCPCS: 36415; 74176; 74250; 80053; 81003; 81025; 83690; 84439; 84443; 84703; 85025; 96361; 96374; 96375; 99285; J2405; J7030; J8499